=== PATIENT | male | born 1985 | race Caucasian/White ===

== ENCOUNTER 2017-02-16 10:15 | Emergency (ER) | payer MEDICAID ==
[2017-02-16 10:29] VITALS: BP 136/77
--- NOTE | 2017-02-16 11:27 | EDM.PDOC ---
ED HPI GENERAL MEDICAL PROBLEM - General Chief Complaint: ENT Problem Stated Complaint: TOOTH PAIN Time Seen by Provider: 02/16/17 10:57 Source of Information: Reports: Patient History Limitations: Reports: No Limitations - History of Present Illness INITIAL COMMENTS - FREE TEXT/NARRATIVE: Pain to left upper and lower jaw for several days. He fell yesterday and bumped the left side of his face while on a boat - Related Data Allergies Allergy/AdvReac Type Severity Reaction Status Date / Time No Known Allergies Allergy Verified 02/16/17 10:36 Home Meds: Home Meds . [No Known Home Meds] 0 02/16/17 [History] Past Medical History Respiratory History: Reports: Asthma, PE Musculoskeletal History: Reports: Back Pain, Chronic Other Musculoskeletal History: RT LEG CHRONIC - Infectious Disease History Infectious Disease History: Reports: Chicken Pox Social & Family History - Family History Cardiac: Reports: CAD - Tobacco Use Smoking Status *Q: Current Some Day Smoker Years of Tobacco use: 13 Packs/Tins Daily: 1 Second Hand Smoke Exposure: No - Caffeine Use Caffeine Use: Reports: Energy Drinks Other Caffeine Use: COUPLE OF ENERGY DRINKS A DAY - Recreational Drug Use Recreational Drug Use: No ED ROS ENT - Review of Systems Review Of Systems: ROS reveals no pertinent complaints other than HPI. ED EXAM, ENT - Physical Exam Exam: See Below Exam Limited By: No Limitations General Appearance: Alert, WD/WN, Mild Distress Mouth/Throat: Other (Several missing teeth poor oral hygiene large cavity the anterior aspect of the lower left molar. Possibly some early abscess to the left upper premolar.) Course - Vital Signs Last Recorded V/S: Last Vital Signs Temp 36.9 C 02/16/17 10:54 Pulse 70 02/16/17 10:54 Resp 16 02/16/17 10:54 BP 136/77 02/16/17 10:54 Pulse Ox 97 02/16/17 10:54 Departure - Departure Time of Disposition: 11:56 Disposition: Home, Self-Care 01 Condition: Fair Clinical Impression: Dental caries extending into dentin - Discharge Information Forms: ED Department Discharge Additional Instructions: Take Penicillin VK 500 mg 4 times daily #40. Take [place] 5/325 #20 tablets 1 or 2 tablets every 4 hours as needed for pain Follow-up in dental clinic tomorrow. The pain medications can cause sedation and impaired driving Patient try something like a benzocaine gel such as Orajel to place on the tooth that may help temporarily
== END 2017-02-16 12:20 | disposition home or self-care (01) ==
LOC: JP.ED 10:15
DX: K02.9 Dental caries, unspecified (principal); F17.210 Nicotine dependence, cigarettes, uncomplicated; J45.909 Unspecified asthma, uncomplicated; Z86.711 Personal history of pulmonary embolism
CPT/HCPCS: 99283

== ENCOUNTER 2018-02-03 23:52 | Emergency (ER) | payer MEDICAID ==
[2018-02-04] MEDS ORDERED: Acetaminophen/oxyCODONE 325-5 MG Tab PO ONE (01:42)
[2018-02-04] MEDS ORDERED: Ketorolac 60 MG/2 ML SDV IM ONE (01:42)
--- NOTE | 2018-02-04 01:43 | EDM.PDOC ---
ED HPI GENERAL MEDICAL PROBLEM - General Chief Complaint: ENT Problem Stated Complaint: TOOTHACHE Time Seen by Provider: 02/04/18 01:43 Source of Information: Reports: Patient History Limitations: Reports: No Limitations - History of Present Illness INITIAL COMMENTS - FREE TEXT/NARRATIVE: pt broke a upper incisor on te left. He also has a carious broken molar on the lower left that is painful. The gum line on the left upper is very red and swollen. He is having alot of pain. Onset: Gradual, Other ( Last 2 days, but much worse today. ) Duration: Hour(s): Location: Reports: Face Associated Symptoms: Reports: No Other Symptoms Left Tooth/Teeth Pain Score (Numeric/FACES): 7 - Related Data Allergies Allergy/AdvReac Type Severity Reaction Status Date / Time No Known Allergies Allergy Verified 02/04/18 01:04 Home Meds: Home Meds Albuterol [Ventolin HFA] 1 puff INH ASDIRECTED 02/04/18 [History] Past Medical History Respiratory History: Reports: Asthma, PE Musculoskeletal History: Reports: Back Pain, Chronic Other Musculoskeletal History: RT LEG CHRONIC - Infectious Disease History Infectious Disease History: Reports: Chicken Pox - Past Surgical History Musculoskeletal Surgical History: Reports: Shoulder Surgery, Other (See Below) Other Musculoskeletal Surgeries/Procedures:: right hand surgery Social & Family History - Family History Cardiac: Reports: CAD - Tobacco Use Smoking Status *Q: Light Tobacco Smoker Years of Tobacco use: 20 Packs/Tins Daily: 0.3 - Caffeine Use Caffeine Use: Reports: Energy Drinks Other Caffeine Use: COUPLE OF ENERGY DRINKS A DAY - Recreational Drug Use Recreational Drug Use: No ED ROS ENT - Review of Systems Review Of Systems: See Below Constitutional: Reports: No Symptoms HEENT: Reports: Dental Pain Respiratory: Reports: No Symptoms Cardiovascular: Reports: No Symptoms Endocrine: Reports: No Symptoms GI/Abdominal: Reports: No Symptoms : Reports: No Symptoms Musculoskeletal: Reports: No Symptoms ED EXAM, ENT - Physical Exam Exam: See Below Text/Narrative:: pt arrived with marked pain on the left. He has not seen a dentist for a long period of time. Exam Limited By: No Limitations General Appearance: Alert, Anxious Ears: Normal TMs Nose: Normal Inspection Mouth/Throat: Dental Abcess, Dental Pain, Other (pt has a very carious tooth on the left lower that is painful. His left upper is red and swollen. The area did look infected. ) Head: Atraumatic Neck: Normal Inspection Respiratory/Chest: No Respiratory Distress Course - Vital Signs Last Recorded V/S: Last Vital Signs Temp 36.6 C 02/04/18 01:03 Pulse 88 02/04/18 01:03 Resp 20 02/04/18 01:03 BP 166/108 H 02/04/18 01:03 Pulse Ox 98 02/04/18 01:03 - Orders/Labs/Meds Meds: Medications Discontinued Medications Generic Name Dose Route Start Last Admin Trade Name Freq PRN Reason Stop Dose Admin Ketorolac Tromethamine 60 mg 02/04/18 01:42 02/04/18 01:51 Toradol IM 02/04/18 01:43 60 mg ONETIME ONE Administration Lidocaine HCl 1 ml 02/04/18 01:58 Xylocaine 4% Top Soln MUCMEM 02/04/18 01:59 ONETIME ONE Oxycodone/Acetaminophen 1 tab 02/04/18 01:42 02/04/18 01:51 Percocet 325-5 Mg PO 02/04/18 01:43 1 tab ONETIME ONE Administration - Re-Assessments/Exams Free Text/Narrative Re-Assessment/Exam: 02/04/18 02:08 pt was given torodol 60mg im and percocet 5/325 . He had a lidocaine pac applied. Departure - Departure Time of Disposition: 01:59 Disposition: Home, Self-Care 01 Condition: Fair Clinical Impression: Infected tooth - Discharge Information Instructions: Dental Abscess, [id number] Referrals: PCP,None [Primary Care Provider] - Forms: ED Department Discharge Care Plan Goals: torodol 10 mg qid, amoxicillin 500mg tid, apply lidocaine packs to the area, norco 5/325 q6h prn for severe paino
[2018-02-04] MEDS ORDERED: Lidocaine 4% Top Soln 50 ML Bottle MUCMEM ONE (01:58)
[2018-02-04 02:03] VITALS: BP 166/108
== END 2018-02-04 02:20 | disposition home or self-care (01) ==
LOC: JP.ED 23:52
DX: K04.7 Periapical abscess without sinus (principal); J45.909 Unspecified asthma, uncomplicated; F17.200 Nicotine dependence, unspecified, uncomplicated
CPT/HCPCS: 96372; 99283; A9270; J1885

== ENCOUNTER 2018-02-07 09:06 | Emergency (ER) | payer MEDICAID ==
[2018-02-07 09:33] VITALS: BP 150/91
--- NOTE | 2018-02-07 10:05 | EDM.PDOC ---
ED HPI GENERAL MEDICAL PROBLEM - General Chief Complaint: ENT Problem Stated Complaint: TOOTHACHE Time Seen by Provider: 02/07/18 09:50 Source of Information: Reports: Patient, Old Records History Limitations: Reports: No Limitations - History of Present Illness INITIAL COMMENTS - FREE TEXT/NARRATIVE: 32 yo male here from the [facility] with dental pain. Says he has an appt this coming Tuesday to have his teeth evaluated by a dentist in [place]. No fever or facial swelling. Is still on Amox per a recent ER visit here. Is out of his pain meds. Onset: Gradual Onset Date: 02/01/18 Duration: Day(s):, Constant Location: Reports: Face Quality: Reports: Ache Severity: Moderate Improves with: Reports: Medication Worsens with: Reports: Other (time) Context: Reports: Other (many bad teeth) Associated Symptoms: Reports: No Other Symptoms Treatments MESS COOK: Reports: Other (see below) (none, ran out of hydrocodones last night.) - Related Data Allergies Allergy/AdvReac Type Severity Reaction Status Date / Time No Known Allergies Allergy Verified 02/07/18 09:50 Home Meds: Home Meds Albuterol [Ventolin HFA] 1 puff INH ASDIRECTED 02/04/18 [History] Acetaminophen/HYDROcodone [[place] 325-5 MG] 1 - 2 tab PO Q6H PRN 02/07/18 [ History] Amoxicillin 500 mg PO TID 02/07/18 [History] Past Medical History HEENT History: Reports: Other (See Below) Other HEENT History: tooth pain Respiratory History: Reports: Asthma, PE Musculoskeletal History: Reports: Back Pain, Chronic Other Musculoskeletal History: RT LEG CHRONIC - Infectious Disease History Infectious Disease History: Reports: Chicken Pox - Past Surgical History Musculoskeletal Surgical History: Reports: Shoulder Surgery, Other (See Below) Other Musculoskeletal Surgeries/Procedures:: right hand surgery Social & Family History - Family History Cardiac: Reports: CAD - Tobacco Use Smoking Status *Q: Current Some Day Smoker Years of Tobacco use: 15 Packs/Tins Daily: 0.2 Used Tobacco, but Quit: No Second Hand Smoke Exposure: Yes - Caffeine Use Caffeine Use: Reports: Energy Drinks, Soda, Tea Other Caffeine Use: COUPLE OF ENERGY DRINKS A DAY - Recreational Drug Use Recreational Drug Use: No ED ROS ENT - Review of Systems Review Of Systems: See Below Constitutional: Reports: No Symptoms HEENT: Reports: Dental Pain Respiratory: Reports: No Symptoms Cardiovascular: Reports: No Symptoms Endocrine: Reports: No Symptoms GI/Abdominal: Reports: No Symptoms : Reports: No Symptoms Musculoskeletal: Reports: No Symptoms Skin: Reports: No Symptoms Neurological: Reports: No Symptoms Psychiatric: Reports: No Symptoms ED EXAM, ENT - Physical Exam Exam: See Below Exam Limited By: No Limitations General Appearance: Alert, WD/WN, Mild Distress Eye Exam: Bilateral Eye: Normal Inspection Ears: Normal External Exam, Normal Canal, Hearing Grossly Normal, Normal TMs Nose: Normal Inspection, Normal Mucousa, No Blood Mouth/Throat: Normal Inspection, Normal Lips, Normal Oropharynx, Dental Pain, Dental Tenderness, Other (many caries). No: Normal Teeth Head: Atraumatic, Normocephalic Neck: Normal Inspection, Supple, Non-Tender Respiratory/Chest: No Respiratory Distress, Lungs Clear, Normal Breath Sounds, No Accessory Muscle Use Cardiovascular: Regular Rate, Rhythm, No Edema Neurological: Alert, Oriented, CN II-XII Intact, Normal Cognition, No Motor/ Sensory Deficits Psychiatric: Normal Affect, Normal Mood Skin: Warm, Dry, Intact, Normal Color, No Rash Lymphatic: No Adenopathy Course - Vital Signs Last Recorded V/S: Last Vital Signs Temp 35.7 C 02/07/18 09:57 Pulse 95 02/07/18 09:57 Resp 17 02/07/18 09:57 BP 150/91 H 02/07/18 09:57 Pulse Ox 97 02/07/18 09:57 Departure - Departure Time of Disposition: 10:05 Disposition: Home, Self-Care 01 Condition: Fair Clinical Impression: Dental caries, Dental caries extending into dentin, Pain, dental - Discharge Information Referrals: PCP,None [Primary Care Provider] -
== END 2018-02-07 10:13 | disposition home or self-care (01) ==
LOC: JP.ED 09:06
DX: K02.9 Dental caries, unspecified (principal); F17.210 Nicotine dependence, cigarettes, uncomplicated; Z79.899 Other long term (current) drug therapy
CPT/HCPCS: 99283